=== PATIENT | female | born 1995 | race Caucasian/White ===

== ENCOUNTER 2023-11-29 14:22 | Emergency (ER) | payer OTHER, SELFPAY ==
[2023-11-29 14:25] VITALS: BP 119/84
[2023-11-29 14:47] LABS: % Basophils 0.4 % (0-2); % Eosinophils 3.7 % (0-6); % Immature Granulocytes 0.1 % (0-0.5); % Lymphocytes 33.3 % (20.5-51.1); % Monocytes 6.9 % (1.7-9.3); % Neutrophils 55.6 % (42.2-75.2); Absolute Eosinophils 0.3 10^3/uL (0-0.7); Absolute Lymphocytes 2.4 10^3/uL (1.2-3.4); Absolute Monocytes 0.5 10^3/uL (0.1-0.6); Absolute Neutrophils 3.9 10^3/uL (1.4-6.5); Mean Corp Hgb Conc. 35.3 g/dL (33.0-37.0); Mean Corpuscular Hgb 30.9 pg (27.0-31.0); Mean Corpuscular Volume 87.6 fL (81.0-99.0); Mean Platelet Volume 10.9 fL (7.4-10.4); Nucleated Red Blood Cells % 0 %; Platelet Count 217 10^3/uL (130-400); Red Blood Cell Count 3.88 10^6/uL (4.20-5.40); Red Cell Dist. Width 11.4 % (11.5-14.5); White Blood Cell Count 7.1 10^3/uL (4.8-10.8)
[2023-11-29 14:49] LABS: Urine Albumin Negative (Neg - Trace); Urine Bilirubin Negative (Negative); Urine Character Clear (Clear); Urine Color Yellow; Urine Glucose Negative (Negative); Urine Ketone Negative (Negative); Urine Leukocyte Negative (Negative); Urine Nitrite Negative (Negative); Urine Occult Blood Negative (Negative); Urine Specific Gravity 1.005 (<1.030); Urine Urobilinogen Negative (Neg - 1+)
[2023-11-29 15:03] LABS: HCG, Serum Qualitative Screen Negative
[2023-11-29 15:05] LABS: ALT (SGPT) 16 U/L (0-35); AST (SGOT) 21 U/L (14-36); Albumin 4.8 g/dl (3.5-5.0); Alkaline Phosphatase 51 U/L (38-126); Blood Urea Nitrogen 11 mg/dl (7-17); Carbon Dioxide 28 mmol/L (22-30); Chloride 103 mmol/L (98-107); Glucose 104 mg/dl (70-99); Lipase 110 U/L (23-300); Potassium 3.9 mmol/L (3.5-5.1); Sodium 141 mmol/L (135-145); Total Bilirubin 1.1 mg/dl (0.2-1.3); Total Protein 7.5 g/dl (6.3-8.2); eGFR > 60.00
--- NOTE | 2023-11-29 16:48 | ED.GENMED ---
History of Present Illness
General
Chief Complaint: Abdominal Pain
Source: patient
Time Seen by Provider: 11/29/23 16:00
History of Present Illness
History of Present Illness:
28-year-old female with past medical history of asthma and IBS-C presenting to the emergency department for evaluation of constipation that has been ongoing for approximately 1 week, last night was in significant pain and having cramping after
taking MiraLAX but had not had any relief today after taking the MiraLAX. While pain is a little bit improved today patient still with left-sided abdominal cramping which is similar to previous episodes of her constipation. Patient was recently
started on daily medications for constipation about a month ago but reports that since starting this medication she feels as if her symptoms may have gotten worse. Denies any fevers, chills, rigors, vomiting but does admit to some decreased oral
intake as she wants to eat but states she just feels very full. No other concerns presently.
Past History
Past History
ED Past Medical History: Asthma and Other (Chronic constipation)
ED Past Surgical History: None
Social History
Tobacco: Non-smoker
Alcohol: None
Drug: None
Personal: Single
Living: with family
Employment: Employed
Review of Systems
Review of Systems
All Other Systems: ROS reviewed and negative except as documented in HPI and ROS
Phy Exam
Physical Exam
Physical Exam:
GENERAL: Alert , in no apparent distress
EYE: clear conjunctiva b/l
HEAD: NCAT
ENT: mmm.
CARDIAC: Regular rate and rhythm .
LUNGS: Clear breath sounds bilaterally, no acute respiratory distress, no wheezes/rales/rhonchi
ABDOMEN: Soft, generally tender but worse to the left mid and lower abdomen, no r/g, no cvat
NEUROLOGICAL: Alert and oriented
SKIN: Warm and dry, skin intact.
MUSCULOSKELETAL: well perfused.
PSYCH: Normal and appropriate interaction.
Scores
Heart Failure Risk
Heart Failure Risk Score: Not Applicable
Heart Score for Chest Pain Patients
STEMI patient?: Not applicable
Withdrawal Assessment of Alcohol
Withdrawal Assessment Completed?: Not applicable
Course
Orders/Labs/Results
Orders:
Orders
11/29/23 14:29
Test Result ONCE
11/29/23 14:33
Complete Blood Count/With Diff Urgent
Comprehensive Metabolic Panel Urgent
HCG, Serum Qualitative Screen Urgent
Lipase Urgent
Urinalysis Reflex To Culture Urgent
Date Specimen was Collected: 11/29/23
Time Specimen was Collected: 14:29
11/29/23 16:42
CR Abdomen - 1 View Urgent
Comment:
Reason For Exam: constipation
Abnormal Lab Results
11/29/23
14:33
RBC 3.88 L 10^6/uL
(4.20-5.40)
Hct 34.0 L %
(37.0-47.0)
RDW 11.4 L %
(11.5-14.5)
MPV 10.9 H fL
(7.4-10.4)
Glucose 104 H mg/dl
(70-99)
11/29/23 14:33
11/29/23 14:33
Vital Signs
Initial and Last Documented VS:
Initial Vital Signs
Temp Pulse Resp BP Pulse Ox
98.2 F 100 18 119/84 98
11/29/23 14:25 11/29/23 14:25 11/29/23 14:25 11/29/23 14:25 11/29/23 14:25
Last Documented Vital Signs
Temp Pulse Resp BP Pulse Ox
98.2 F 100 18 119/84 98
11/29/23 14:25 11/29/23 14:25 11/29/23 16:00 11/29/23 14:25 11/29/23 14:25
MDM/Problems Addressed
Differential Diagnosis Includes:
Acute on chronic exacerbation of constipation, bowel obstruction, no concern for an acute surgical abdomen
MDM/Problems Addressed:
28-year-old female presenting emergency department for evaluation of acute on chronic constipation. Last bowel movement was around a week ago. Patient did attempt some MiraLAX last night without any relief. No medications today. Labs and urine
ordered in triage and are unremarkable. Will obtain an x-ray of the abdomen. I did offer medications however patient would like to hold on medications at this time may prefer to just go home to continue treating at home. I did encourage patient
to contact her GI physician tomorrow as patient will likely need close follow-up and potentially changes to medication regimen and treatment plan.
Chronic conditions affecting care: Other (IBS-C)
*Radiology
Radiology exam reviewed: preliminary read by ED provider (Nonobstructive bowel gas pattern but with increased stool)
*Pulse Oximetry
Patient hypoxic: no
*Critical Care Note
Total Time (30-74mins, 75-104mins- exclusive of procedures): Not Applicable
Patient Management
Escalation/DeEscalation of care consider admission/obs:
Patient's x-ray shows a nonobstructive bowel gas pattern but there is increased stool burden. And I did offer patient management here however she would just like to go home and attempt medications there. Aware of return precautions. Again I did
advise patient to contact her GI team for further instruction as well as close follow-up.
ED Attending Note
-
Portions of this chart may have been created with voice recognition software.� Occasional wrong word or��sound alike� substitutions may have occurred due to the inherent limitations of voice recognition software.
Discharge Plan
Departure
Patient Disposition: Home (Routine Discharge)
Date of Disposition: 11/29/23
Time of Disposition: 17:25
Patient with high blood pressure during this ER visit?: No
Discharge Problem:
Constipation
Instructions: Constipation, Adult (DC)
Referrals:
Barbi Molina MD [Active] -
Mehnaz Escobar CRNP [Family Provider] -
Interventions
Interventions:
*Risk Screen - Suicide Last Done: 11/29/23 14:25
*General Assessment Last Done: 11/29/23 14:25
*Neglect/Abuse Screening Last Done: 11/29/23 14:25
ED- Fall Risk Assessment Last Done: 11/29/23 15:29
DL-Wghlyz-Dgjkklaaxd Assessment Last Done: 11/29/23 15:29
Discharge Date and Time
Print Language: FRENCH
[2023-11-29 17:33] VITALS: BP 112/73
== END 2023-11-29 17:34 | disposition home or self-care (01) ==
LOC: EMR 14:22
PROVIDERS: EMERGENCY PHYSICIAN Emergency Medicine; FAMILY PHYSICIAN Nurse Practitioner Adult Health
DX: K58.1 Irritable bowel syndrome with constipation (principal); R10.9 Unspecified abdominal pain; J45.909 Unspecified asthma, uncomplicated
CPT/HCPCS: 99283; 74018; 80053; 81003; 83690; 84703; 85025

== ENCOUNTER 2024-11-25 06:29 | Day surgery (SDC) | payer OTHER, SELFPAY | END 2024-11-25 10:27 | disposition home or self-care (01) | LOC: GI 06:29 | PROVIDERS: ATTENDING PHYSICIAN Internal Medicine; FAMILY PHYSICIAN Nurse Practitioner Adult Health | DX: R13.10 Dysphagia, unspecified (principal); K44.9 Diaphragmatic hernia without obstruction or gangrene; K22.89 Other specified disease of esophagus; K20.90 Esophagitis, unspecified without bleeding | CPT/HCPCS: 43239; 88305; 88342 ==